=== PATIENT | female | born 1985 | race Hispanic/Latino ===

== ENCOUNTER 2017-04-12 09:20 | Emergency (ER) | payer MEDICAID, OTHER | END 2017-04-12 10:25 | disposition home or self-care (01) | LOC: EDH 09:20 | DX: K52.89 Other specified noninfective gastroenteritis and colitis (principal) | CPT/HCPCS: 96372 ==

== ENCOUNTER 2017-08-01 00:51 | Inpatient (IN) | payer SELFPAY ==
[2017-08-01] VITALS (19 sets, daily range): BP systolic 96–118; BP diastolic 58–79
[~2017-08-01] VITALS: Ht 167.6 cm; Wt 104.3 kg
[2017-08-01 01:28] LABS: BASOPHILS % (AUTO) 0.6 % (0.0-5.0); HEMATOCRIT 41.3 % (36-48); LYMPHOCYTES % (AUTO) 18.6 % (21.0-51.0); MEAN CORPUSCULAR HEMOGLOBIN 28.4 pg (27.0-33.0); MEAN CORPUSCULAR HGB CONC 33.5 g/dL (32.0-36.0); MEAN CORPUSCULAR VOLUME 84.8 fL (79-99); MONOCYTES % (AUTO) 5.6 % (3.0-13.0); NEUTROPHILS % (AUTO) 74.2 % (40.0-77.0); PLATELET COUNT (AUTO) 231 K/uL (130-400); RED BLOOD CELL COUNT(AUTO) 4.88 MIL/uL (4.00-5.50); WHITE BLOOD COUNT (AUTO) 12.3 K/uL (4.8-10.8)
[2017-08-01 01:32] LABS: APPEARANCE,URINE Clear (CLEAR); BILIRUBIN,URINE Negative (NEGATIVE); COLOR,URINE Yellow (YELLOW); GLUCOSE, URINE (UA) Negative (NEGATIVE); KETONES,URINE Negative (NEGATIVE); LEUKOCYTE ESTERASE ,URINE Negative (NEGATIVE); NITRATE,URINE Negative (NEGATIVE); OCCULT BLOOD,URINE Negative (NEGATIVE); PROTEIN,URINE Negative (NEGATIVE); UROBILINOGEN,URINE 0.2 mg/dL (0.2-1.0)
[2017-08-01 01:33] LABS: CREATININE 0.9 mg/dL (0.5-1.5); POTASSIUM 3.6 mmol/L (3.5-5.1)
[2017-08-01 01:37] LABS: ALBUMIN 3.6 g/dL (3.5-5.0); BILIRUBIN,TOTAL 0.4 mg/dL (0.2-1.0); TOTAL PROTEIN, SERUM 8.2 g/dL (6.0-8.3)
[2017-08-01 01:44] LABS: AMYLASE 62 U/L (25-115)
[2017-08-01 01:45] LABS: LIPASE 116 U/L (114-286)
[2017-08-01] MEDS ORDERED: ONDANSETRON HCL MDV 20ML 2 MG/ML VIAL ONE (02:23)
[2017-08-01] MEDS ORDERED: KETOROLAC TROMETHAMINE 30MG/ML ONE ×2 (02:23→15:17)
[2017-08-01] MEDS ORDERED: HYDROMORPHONE HCL 0.5 MG/0.5 ML ML ONE (04:54)
[2017-08-01] MEDS ORDERED: ACETAMINOPHEN EXTRA STRENGTH 500 MG TABLET ONE (04:58)
[2017-08-01] MEDS ORDERED: SODIUM CHLORIDE 0.9% 1000ML 1,000 ML IV ONE (05:28)
[2017-08-01] MEDS ORDERED: ONDANSETRON HCL MDV 20ML 2 MG/ML VIAL IVP PRN ×2 (06:45→15:15)
[2017-08-01] MEDS: SODIUM CHLORIDE 0.9% 1000ML 1,000 ML IV SCH ×2 (06:45→16:23)
[2017-08-01] MEDS ORDERED: HYDROMORPHONE 1 MG/1 ML AMP IVP PRN (07:00)
[2017-08-01] MEDS ORDERED: CEFOXITIN SODIUM 1 GM VIAL IV SCH (09:30)
[2017-08-01] MEDS ORDERED: WATER FOR INJECTION,STERILE 20 ML VIAL IJ SCH (09:30)
[2017-08-01] MEDS: CEFOXITIN SODIUM 2 GM VIAL IVP SCH ×2 (09:55→18:04)
[2017-08-01] MEDS ORDERED: LACTATED RINGERS 1000ML 1,000 ML IV ONE (11:36)
[2017-08-01] MEDS ORDERED: BUPIVACAINE/PF 0.5% 30ML VIAL ONE (11:44)
[2017-08-01] MEDS ORDERED: DEXAMETHASONE SOD PHOSPHATE 10MG/ML 1ML VIAL ONE (12:59)
[2017-08-01] MEDS ORDERED: PROPOFOL 10 MG/ML 20ML VIAL IV ONE (12:59)
[2017-08-01] MEDS ORDERED: LIDOCAINE PF 2% 5ML ABBOJECT ONE (12:59)
[2017-08-01] MEDS ORDERED: SUCCINYLCHOLINE 200MG/10ML SYR ONE (12:59)
[2017-08-01] MEDS ORDERED: GLYCOPYRROLATE 0.2 MG/ML 5 ML VIAL ONE (12:59)
[2017-08-01] MEDS ORDERED: MIDAZOLAM HCL 1 MG/ML 2ML VIAL ONE (12:59)
[2017-08-01] MEDS ORDERED: NEOSTIGMINE 5MG/5ML SYR IV ONE (12:59)
[2017-08-01] MEDS ORDERED: ONDANSETRON HCL 4 MG/2 ML VIAL ONE (12:59)
[2017-08-01] MEDS ORDERED: FENTANYL CITRATE PF 50 MCG/1 ML 2ML VIAL ONE ×2 (13:01→14:32)
[2017-08-01] MEDS ORDERED: LIDOCAINE HCL 4% LTA SOL 4 ML VIAL ONE (14:45)
[2017-08-01] MEDS ORDERED: ROCURONIUM BROMIDE 10MG/1ML 5ML VL ONE ×2 (14:45)
[2017-08-01] MEDS ORDERED: PHENYLEPHRINE HCL 10 MG/ML 1ML VIAL IV ONE (14:45)
[2017-08-01] MEDS: LACTATED RINGERS 1000ML 1,000 ML IV SCH (15:11)
[2017-08-01] MEDS ORDERED: MORPHINE SULFATE 4 MG/1ML SYG IV PRN (15:15)
[2017-08-01] MEDS: ACETAMINOPHEN-CODEINE 300/30MG TAB PO PRN (18:47)
[2017-08-02 00:09] VITALS: BP 100/58
[2017-08-02] MEDS: CEFOXITIN SODIUM 2 GM VIAL IVP SCH ×2 (01:32→09:30)
[2017-08-02] MEDS: SODIUM CHLORIDE 0.9% 1000ML 1,000 ML IV SCH (02:45)
[2017-08-02] MEDS: ACETAMINOPHEN-CODEINE 300/30MG TAB PO PRN (03:41)
[2017-08-02] MEDS: LACTATED RINGERS 1000ML 1,000 ML IV SCH (03:48)
[2017-08-02 04:32] LABS: CREATININE 0.8 mg/dL (0.5-1.5)
[2017-08-02 04:36] VITALS: BP 116/68
[2017-08-02 04:37] LABS: BASOPHILS % (AUTO) 0.2 % (0.0-5.0); HEMATOCRIT 34.9 % (36-48); LYMPHOCYTES % (AUTO) 5.5 % (21.0-51.0); MEAN CORPUSCULAR HEMOGLOBIN 28.8 pg (27.0-33.0); MEAN CORPUSCULAR HGB CONC 33.5 g/dL (32.0-36.0); MONOCYTES % (AUTO) 2.9 % (3.0-13.0); NEUTROPHILS % (AUTO) 91.4 % (40.0-77.0); PLATELET COUNT (AUTO) 169 K/uL (130-400); RED BLOOD CELL COUNT(AUTO) 4.05 MIL/uL (4.00-5.50); WHITE BLOOD COUNT (AUTO) 12.4 K/uL (4.8-10.8)
[2017-08-02 07:28] VITALS: BP 124/53
[2017-08-02 11:29] VITALS: BP 109/68
[2017-08-02 15:51] VITALS: BP 121/58
== END 2017-08-02 17:05 | disposition home or self-care (01) | DRG 343 ==
LOC: EDH 00:51 → OBSVTOIN 00:52 → EDHIP 00:52 → WSH 06:00
PROVIDERS: ADMIT Student in an Organized Health Care Education/Training Program; ATTEND Student in an Organized Health Care Education/Training Program
PROC: 0DTJ4ZZ Resection of Appendix, Percutaneous Endoscopic Approach (ICD-10-PCS; principal; 2017-08-01 14:03)
DX: K35.80 Unspecified acute appendicitis (principal); E66.01 Morbid (severe) obesity due to excess calories; Z82.49 Family history of ischemic heart disease and other diseases of the circulatory system; Z83.3 Family history of diabetes mellitus; Z82.61 Family history of arthritis; Z82.5 Family history of asthma and other chronic lower respiratory diseases; Z68.37 Body mass index [BMI] 37.0-37.9, adult
CPT/HCPCS: 36415; 74176; 80048; 80053; 81003; 81025; 82150; 83690; 85025; 88304; A4218; J0330; J0694; J1100; J1170; J1885; J2001; J2250; J2370; J2405; J2704; J2710; J3010; J3490; J7030; J7120

== ENCOUNTER → 2025-03-10 | Outpatient (CLI) | payer SELFPAY | END | disposition home or self-care (01) | LOC: RAH 11:41 | PROVIDERS: ATTEND Internal Medicine | DX: Z12.31 Encounter for screening mammogram for malignant neoplasm of breast (principal) | CPT/HCPCS: 77067 ==